=== PATIENT | male | born 1985 | race Caucasian/White ===

== ENCOUNTER 2018-10-11 07:00 | Day surgery (SDC) | payer OTHER ==
[~2018-10-11 07:00] MED LIST: LEXAPRO5 MG PO
[2018-10-11] MEDS ORDERED: ZOFRAN ODT4 MG PO (13:57)
[2018-10-11] MEDS ORDERED: KETO10TA2 PO (13:57)
[2018-10-11] MEDS ORDERED: PEPCID20 MG PO (13:57)
[2018-10-11] MEDS ORDERED: PERCOCET 5-3251 EACH PO (13:57)
[2018-10-11] MEDS ORDERED: MIRALAX17 GM PO (13:57)
== END 2018-10-11 13:00 | disposition home or self-care (01) ==
LOC: CIR.AMB 07:00
DX: K42.0 Umbilical hernia with obstruction, without gangrene (principal); K43.6 Other and unspecified ventral hernia with obstruction, without gangrene